=== PATIENT | male | born 1980 | race Caucasian/White ===

== ENCOUNTER → 2019-01-18 | Outpatient (CLI) | payer OTHER ==
[~2019-01-18] MED LIST: ALPR0.5T7; ARMO150T2; BUPR150T7; LISD70CA3; MIRT30TA6
--- NOTE | 2019-01-18 10:51 | Diagnostic Imaging Report ---
MRI LT LOWER EXT JOINT W/O TECHNIQUE: Multiplanar, multisequence MR imaging of the right knee was performed without contrast. COMPARISON: None available. INDICATION: Right knee pain after injury obtained playing softball. FINDINGS: MENISCI Medial meniscus: Probable horizontal cleavage tear in the posterior horn of the medial meniscus. Lateral meniscus: Normal. LIGAMENTS ACL: Intact. PCL: Intact. MCL: Abnormal thickening and increased signal within and surrounding the proximal MCL is compatible with partial-thickness tear/high-grade sprain. The distal insertion of the MCL on the tibia is intact. LCL: The lateral collateral ligamentous complex is intact. EXTENSOR MECHANISM The extensor mechanism is intact. CARTILAGE Medial compartment: Medial compartment articular cartilage is well preserved without focal high-grade chondromalacia. Lateral compartment: The lateral compartment articular cartilage is preserved without high-grade chondromalacia. Patellofemoral compartment: The patellofemoral articular cartilage is well preserved without high-grade chondromalacia. BONE No fracture, stress fracture or osteonecrosis. SOFT TISSUE No knee effusion or Locke's cyst. IMPRESSION: 1. Intermediate grade sprain/partial-thickness tear of the proximal origin of the MCL. Distal insertion of the MCL remains intact. 2. Probable nondisplaced horizontal cleavage tear in the posterior horn of the medial meniscus. Dictated by: Dictated on workstation # [id number]
== END ==
LOC: RAD 08:51
PROVIDERS: ATTEND Nurse Practitioner
DX: S83.242A Other tear of medial meniscus, current injury, left knee, initial encounter (principal); Y93.64 Activity, baseball
CPT/HCPCS: 73721

== ENCOUNTER 2020-10-29 05:38 | Outpatient (RCR) | payer OTHER ==
[~2020-10-29 05:38] MED LIST changes: +BUPR150T24; -BUPR150T7; +MIRT-69; -MIRT30TA6
== END 2021-01-27 | disposition home or self-care (01) ==
LOC: PREOP 05:38
PROVIDERS: ATTEND Surgery
DX: Z01.818 Encounter for other preprocedural examination (principal)

== ENCOUNTER → 2022-01-01 | Outpatient (CLI) | payer OTHER ==
[~2022-01-01] VITALS: Ht 170.2 cm; Wt 79.8 kg
[~2022-01-01] MED LIST changes: +CLN.1T PO; +LAMO200T5 PO; +LISI1TAB46 PO; +OMEP20CA18 PO; +PANT20TA18 PO; +PROP40TA5 PO; +SUCR1TAB PO
== END | disposition home or self-care (01) ==
LOC: PREOP 07:40
PROVIDERS: ATTEND Surgery
DX: Z01.818 Encounter for other preprocedural examination (principal)

== ENCOUNTER 2022-02-07 12:31 | Day surgery (SDC) | payer OTHER ==
[~2022-02-07] VITALS: Ht 170.2 cm; Wt 79.8 kg
[2022-02-07] MEDS ORDERED: LACTATED RINGERS 1,000 ML IV ONE (12:35)
[2022-02-07 13:00] VITALS: BP 120/72
[2022-02-07] MEDS ORDERED: MIDAZOLAM 2 MG/2 ML (VERSED) VIAL ONE (13:03)
[2022-02-07] MEDS ORDERED: proPOfol 200 MG/20 ML (DIPRIVAN) VIAL IV ONE (13:03)
--- NOTE | 2022-02-07 13:22 | Anesthesia-General Post-Op ---
MAC Patient Condition Mental Status/LOC: Same as Preop Cardiovascular: Satisfactory Nausea/Vomiting: Absent Respiratory: Satisfactory Pain: Controlled Complications: Absent Post Op Complications Complications None Follow Up Care/Instructions Patient Instructions None needed. Anesthesiology Discharge Order Discharge Order Patient is doing well, no complaints, stable vital signs, no apparent adverse anesthesia problems. No complications reported per nursing. STEPHANIA SILVA CRNA Feb 07, 2022 13:22
[2022-02-07 13:25] VITALS: BP 135/82
[2022-02-07 13:30] VITALS: BP 125/73
[2022-02-07 13:33] VITALS: BP 131/80
--- NOTE | 2022-02-07 13:55 | Progress Note-Post Operative ---
Post-Operative Progess Note Surgeon (s)/Plant Maintenance Worker (s) Surgeon FLAQUITO OVIEDO DO Plant Maintenance Worker: none Pre-Operative Diagnosis Epigastric pain, Gastritis Post-Operative Diagnosis Gastritis with bleeding Hiatal hernia -sliding Procedure & Operative Findings Date of Procedure 02/07/22 Procedure Performed/Findings PROCEDURE NOTE: After informed consent was obtained, the patient was brought to the endoscopy suite, placed in bed in left lateral decubitus position. He was administered IV sedation by the MAIL CARRIERS SUPERVISOR who then monitored vitals the entire time, heart rate, blood pressure and pulse ox and the scope was inserted down the mouth through the esophagus into the stomach. Pushed into the stomach and past the antrum into the duodenum. Duodenum looked good. Had noted some blood in the stomach and Gastritis; gastritis with bleeding. Pulled back and did a biopsy of antrum, then retroflexed the scope, saw a sliding hiatal hernia (could see the GE junction coming into the stomach), took a picture of this and then pulled the scope into the GE junction and then did a biopsy of the GE junction. Pushed the scope back into the stomach, suctioned all the air out of the stomach. At this point pulled the scope up the esophagus and out the mouth. The patient tolerated the procedure, and he recovered in endoscopy suite. Anesthesia Type IV sedation by MAIL CARRIERS SUPERVISOR Estimated Blood Loss Estimated blood loss (mL): scant Specimens/Packing Specimens Removed antral bx body of stomach bx GE jxn bx FLAQUITO OVIEDO DO Feb 07, 2022 13:55
[2022-02-07 14:04] VITALS: BP 111/78
--- NOTE | 2022-02-07 14:11 | Endoscopy Discharge Instruct ---
Endo Procedure/Findings Findings 1.: Gastric Ulcer 2.: Gastritis 3.: Hiatal Hernia Discharge Instructions - Activity: You might feel a little sleepy until tomorrow. This is due to the medicine you received to relax you. Until tomorrow, you should: NOT drive a car, operate machinery or power tools. NOT drink any alcoholic beverages. NOT make any important decisions or sign importortant papers. Do not return to work until tomorrow, unless otherwise instructed. Resume previous activities tomorrow. Diet: Start by taking liquids. If you tolerate liquids, advance to solid food. 1.: EGD in 1 year Notify Physician - If you experience excessive bleeding, unusual abdominal pain, fever, or chest pain, contact your doctor immediately. FLAQUITO OVIEDO DO Feb 07, 2022 14:10
== END 2022-02-07 14:26 | disposition home or self-care (01) ==
LOC: ENDO 12:31
PROVIDERS: ATTEND Surgery
DX: K21.00 Gastro-esophageal reflux disease with esophagitis, without bleeding (principal); K31.89 Other diseases of stomach and duodenum; K29.60 Other gastritis without bleeding; K44.9 Diaphragmatic hernia without obstruction or gangrene; F17.210 Nicotine dependence, cigarettes, uncomplicated
CPT/HCPCS: 88305

== ENCOUNTER 2022-12-30 13:36 | Emergency (ER) | payer OTHER ==
[~2022-12-30] VITALS: Ht 170.2 cm; Wt 77.1 kg
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
[2022-12-30] MEDS ORDERED: TETANUS,DIPTH,PERTUSS P/F (BOOSTRIX) 0.5 ML VIAL IM ONE (14:00)
[2022-12-30] MEDS ORDERED: LIDOCAINE 1% INJ 20 ML VIAL INJ ONE (14:00)
[2022-12-30] MEDS ORDERED: HYDROcodone/APAP 5 MG/325 MG (LORTAB) TAB PO ONE (14:00)
[2022-12-30] MEDS ORDERED: HYDR-3817 PO (14:44)
[2022-12-30 14:51] VITALS: BP 134/72
--- NOTE | 2022-12-30 15:17 | Diagnostic Imaging Report ---
INDICATION: Right shoulder injury with pain. FINDINGS: AP and angled views of the right clavicle reveal a comminuted, mildly displaced fracture involving the distal shaft of the right clavicle with elevation indicating disruption of the coracoclavicular ligament. The fracture may extend to the articular surface of the distal clavicle without definite offset of the joint surface. IMPRESSION: Comminuted mildly displaced distal right clavicle fracture with coracoclavicular ligamentous injury. Dictated by: Dictated on workstation # [id number]
== END 2022-12-30 14:51 | disposition home or self-care (01) ==
LOC: EDUNIT# 13:36 → ER 13:39
DX: S42.031A Displaced fracture of lateral end of right clavicle, initial encounter for closed fracture (principal); S01.81XA Laceration without foreign body of other part of head, initial encounter; Z23 Encounter for immunization; V47.5XXA Car driver injured in collision with fixed or stationary object in traffic accident, initial encounter; Y92.096 Garden or yard of other non-institutional residence as the place of occurrence of the external cause
CPT/HCPCS: 73000; 99284; L3650; 90715

== ENCOUNTER 2023-01-07 17:06 | Emergency (ER) | payer OTHER ==
[~2023-01-07] VITALS: Ht 175.3 cm; Wt 79.0 kg
[~2023-01-07 17:06] MED LIST changes: +HYDR-3817 PO
[2023-01-07 17:11] VITALS: BP 134/78
== END 2023-01-07 17:16 | disposition home or self-care (01) ==
LOC: EDUNIT# 17:06 → ER 17:07
DX: Z48.02 Encounter for removal of sutures (principal); Z28.310 Unvaccinated for COVID-19